=== PATIENT | female | born 1960 | race Caucasian/White ===

== ENCOUNTER 2016-07-20 19:17 | Emergency (ER) | payer OTHER ==
[~2016-07-20] VITALS: Ht 162.6 cm; Wt 79.5 kg
[2016-07-20 19:18] VITALS: BP 119/81; PULSE 129; RESP 25; O2SAT 88
[2016-07-20 19:32] VITALS: BP 76/55; PULSE 122
--- NOTE | 2016-07-20 19:42 | ED.REPORT ---
HPI-Abd Pain F 40 and Over Date of Service Jul 20, 2016 ED Provider: Dr. Artemio Browne The patient is a 56 year old female w/ a hx of DM II and bariatric sleeve who presents to the ED via EMS due to sudden onset, severe SOB while hiking at [facility]. She c/o of a slight cough and denies chest pain. EMS reported that the pt was purple. She was given 2 mg morphine, 324 ASA, and 1 nitro en route. The pt recently had a URI and was on antibiotics. She had skin reduction surgery 6 weeks ago. Nursing Notes Stated Complaint: SHORTNESS OF BREATH Chief Complaint: Chest Pain Nursing Notes Reviewed: Yes Allergies: Coded Allergies: shellfish derived (Verified Allergy, Unknown, Rash,Itching,, 07/20/16) General Time Seen by MD: 19:42 Chief Complaint Other (shortness of breath ) Hx Obtained From: Patient Arrived By: Ambulance Sudden in Onset?: Yes Onset Occurred: Just prior to arrival Symptom Duration: Since onset Severity: Current: No pain currently Recent Healthcare: No recent doctor visit, No recent hospitalization Similar Sx Previous: No Past Medical History Past Medical History Reports: Diabetes mellitus Past Surgical History skin reduction bariatric sleeve Reports: Smoking History Unknown if Ever Smoker Social History Alcohol Use: 1-3 per day Other Social History: Good social support, Local resident Ambulatory Status Independent Review of Systems Respiratory: Reports: Non-productive cough, Shortness of breath Cardiovascular: Denies: Chest pain Complete sys rev & neg: except as marked. Physical Exam Vital Signs Vital Signs (First) Date Time Temp Pulse Resp B/P Pulse Ox O2 Delivery O2 Flow Rate FiO2 07/20/16 19:18 129 25 119/81 88 Room Air 07/20/16 20:00 4 Initial VS: Reviewed Head / Eyes: Atraumatic, Normocephalic, PERRL ENT: Mucous membranes moist, Conjunctiva normal Extremities: Vascular intact, Neuro intact, No swelling Skin: Warm, Dry General/Constitutional: Awake, Alert, Cooperative Resp Distress / Stridor: Positive: Resp distress mild tachypneic hypoxic Heart Rate / Rhythm: Positive: Tachycardia Abdomen: Atraumatic, Soft, Non-tender Back: Atraumatic, Inspection NL, Full range of motion Interpretation & Diagnostics Interpretation & Diagnostics: ANGIOGRAPHY CT IMPRESSION: 1. Multiple segmental and subsegmental pulmonary emboli as described above. The bilateral lower lobe emboli are occlusive. 2. Findings consistent with right cardiac strain. These findings were discussed with Dr. Browne at 9:33 PM on 07/20/16. Dictated by: Evangelina Francis M.D. on 07/20/2016 at 21:29 Approved by: Evangelina Francis M.D. on 07/20/2016 at 21:37 Lab Results Interpretation Result Diagram: 07/20/16 1937 07/20/16 193 Test 07/20/16 19:37 07/20/16 22:55 White Blood Count 17.6th/mm3 (3.8-10.1) Red Blood Count 5.00mil/mm3 (3.90-5.20) Hemoglobin 13.4g/dL (12.0-15.6) Hematocrit 41.4% (35.0-46.0) Mean Corpuscular Volume 82.8fL (81-100) Mean Corpuscular Hemoglobin 26.8pg (27.0-35.0) Mean Corpuscular Hemoglobin Concent 32.4% (32.0-37.0) Red Cell Distribution Width 13.2% (12.3-15.4) Platelet Count 268bil/L (150-400) Neutrophils (%) (Auto) 83.7% (40-74) Lymphocytes (%) (Auto) 11.3% (14-46) Monocytes (%) (Auto) 4.3% (4-12) Eosinophils (%) (Auto) 0.1% (0-5) Basophils (%) (Auto) 0.2% (0-3) D-Dimer 3.67mg/L FEU (<0.50) Sodium Level 137mEq/L (134-144) Potassium Level 4.8mEq/L (3.5-5.2) Chloride Level 98mEq/L (97-108) Carbon Dioxide Level 19mmol/L (18-29) Blood Urea Nitrogen 16mg/dL (6-24) Creatinine 0.71mg/dL (0.57-1.00) Estimat Glomerular Filtration Rate 122mL/min (>59) Glucose Level 452mg/dL (60-99) Calcium Level 9.5mg/dL (8.5-10.1) Magnesium Level 1.9mg/dL (1.6-2.6) Total Bilirubin 0.5mg/dL (0.0-1.2) Aspartate Amino Transf (AST/SGOT) 31U/L (0-50) Alanine Aminotransferase (ALT/SGPT) 30U/L (0-32) Alkaline Phosphatase 99U/L (25-150) Troponin T 0.088ug/L (0.0-0.011) Total Protein 7.1g/dL (6.4-8.4) Albumin 4.0g/dL (3.4-5.0) Hold Kang Top Tube Received (Received) Urine Color Yellow (YELLOW) Urine Appearance Hazy (CLEAR,HAZY) Urine pH 5.5 (5.0-8.0) Urine Specific [place] 1.015 (1.003-1.035) Urine Protein Negativemg/dL (NEG,TRACE) Urine Glucose (UA) >1000mg/dL (NEGATIVE) Urine Ketones 15mg/dL (NEGATIVE) Urine Occult Blood Trace (NEGATIVE) Urine Nitrite Negative (NEGATIVE) Urine Bilirubin Negative (NEGATIVE) Urine Urobilinogen Normalmg/dL (NORMAL) Urine Leukocyte Esterase Trace (NEGATIVE) Urine RBC 0-2/hpf (0-2) Urine WBC 11-50/hpf (0-5) Urine Epithelial Cells Moderate/hpf (NONE-MOD) Urine Crystals None seen (NONE SEEN) Urine Bacteria Moderate/hpf (NONE-FEW) Urine Hyaline Casts None/lpf (NONE) Urine Granular Casts None seen (NONE SEEN) Urine Waxy Casts None seen (NONE SEEN) Urine Red Blood Cell Casts None seen (NONE SEEN) Urine White Blood Cell Casts None seen (NONE SEEN) Urine Mucus Present (None Seen) Urine Trichomonas None seen (NONE SEEN) Urine Yeast None (NONE SEEN) Urinalysis Comment None Urine Culture Reflexed Indicated ECG Interpretation ECG Interpretation: ST elevation in lead V2 no voltage criteria for [place] Time: 19:36 Interpreted by: ED physician Rhythm / Conduction: Tachycardia (rate 116) X-Ray Chest Interpretation Chest Xray Interpretation: IMPRESSION: No acute cardiopulmonary findings. Dictated by: Evangelina Francis M.D. on 07/20/2016 at 19:53 Approved by: Evangelina Francis M.D. on 07/20/2016 at 19:53 View: Portable Interpretation / Wet Read by: Interpret - Radiologist Re-Eval/Medical Decision Med Decision/Clinical Course Healthy 56-year-old female presents tachycardic, tachypneic, hypoxic and short of breath. Symptoms were abrupt in nature. She is found to have a massive pulmonary emboli with evidence of right heart strain on CT scan. EKG has evidence of ischemia/strain. Her troponin is elevated. She is a candidate for interventional/intra-arterial thrombolytics. Our teletypewriter installer does not perform this procedure. Our interventional radiologist will not be available after 6 AM in the event of complications or if she needs to have this repeated. It was recommended for transfer. I consulted with the pulmonary/ critical care doctor at [facility]. Dr. Marylin Harris. She has graciously accepted Ms. Bates for transfer. In the meantime we will treat with fluids, oxygen and IV heparin. At 2320 Ms. Bates is resting comfortably. Her sat is 100% on 4 L nasal cannula. Her respiratory rate is 22. Her blood pressure is 127/66. Her heart rate is 105. She does not have JVD. Her lungs are clear. Transfer is eminent. Re-Evaluation/Progress : Time of Eval: 20:37 Patient Status: Condition unchanged Re-Evaluation/Progress Note: Pt rechecked. She is still short of breath. Waiting on laboratorty results. Consultation #1: Referral / Consult Name: Donny Reid MD Consulted With: Hospitalist Call Returned at: 21:29 Manager Regional Sales: Accepts admit Note: Case discussed. Dr. Reid accepts admit. Consultation #2: Referral / Consult Name: Abdi Henderson MD Consulted With: Cardiology Call Returned at: 21:41 Note: Case discussed. Pt may need thrombolytics. Consultation #3: Referral / Consult Name: Evangelina Francis MD Call Returned at: 21:45 Note: Case discussed radiologist. This is a potentially massive or submassive PE w/ right ventricular strain. Will potentially ship pt to [facility] for further care. Consultation #4: Call Returned at: 21:52 Note: Case discussed w/ nursing land management supervisor at [facility] in [place]. They do not have any ICU beds available. Consultation #5: Call Returned at: 21:55 Note: Case discussed w/ Dr. Parish Morris, bariatric surgeon, at [facility]. Consultation #6: Call Returned at: 22:20 Note: Case discussed. Consultation #7: Call Returned at: 22:23 Note: Case discussed with Arcelia Ramos, Commercial Mortgage Broker Dr. Marylin Harris, pulmonary expert. She recommends catheter directed therapy. Consultation #8: Referral / Consult Name: Donny Reid MD Call Returned at: 11:10 Note: Informed Dr. Reid of plan to transfer pt to [place]. He understands and agrees with plan. Counseled Regarding: Diagnosis, Lab results, Need for transfer Discharge & Departure Primary Impression: Pulmonary embolism Pulmonary embolism type: saddle Chronicity: acute Acute cor pulmonale presence: with acute cor pulmonale Qualified Code: I26.02 - Saddle embolus of pulmonary artery with acute cor pulmonale Disposition: Transfer, Acute Care Facility Transfer Requested at: 22:23 Call returned time Receiving Hospital: Arcelia Ramos, Commercial Mortgage Broker Dr. Marylin Harris. Transfer Accepted: Yes Transfer Accepted at: 22:23 Transfer Reason: Higher level of care Spoke with: Specialty physician Patient Status: Stable for transfer Patient Informed: Yes Discharge Condition All VS Reviewed: Yes Condition: Critical Referrals: [facility] Crit Care Except Billable Proc Time Spent: 195-224 minutes Services Performed: Patient management by me, Time spent at bedside, Reviewing test results, Reviewing imaging, Discussing patient care, Documentation in record, Time with fam/surrogate Scribe Attestation Portion of this note were transcribed by Sunita Chaney. I, Dr. Browne, personally performed the history, physical exam, and medical decision-making: I reviewed and confirmed the accuracy for the information in the transcribed note. Signed by: mera Mccain, 07/20/16 [id number] copies to: [facility] Artemio Browne DO Jul 20, 2016 19:42 Sunita Chaney Jul 20, 2016 19:51
--- NOTE | 2016-07-20 19:55 | DRSVH ---
PROCEDURE: X-RAY CHEST ONE VIEW, PORTABLE ([id number]) INDICATIONS: cp, sob, tachypneia while hiking TECHNIQUE: One view of the chest was acquired. COMPARISON: None. FINDINGS: Surgical changes and devices: None. Lungs and pleura: No pleural effusions or pneumothorax. Lungs are clear. Mediastinum: Mediastinal contours appear normal. Heart size is normal. Bones and chest wall: No suspicious bony lesions. Overlying soft tissues appear unremarkable. IMPRESSION: No acute cardiopulmonary findings. Dictated by: Evangelina Francis M.D. on 07/20/2016 at 19:53 Approved by: Evangelina Francis M.D. on 07/20/2016 at 19:53
[2016-07-20 20:00] VITALS: BP 118/71; PULSE 118; RESP 21; O2SAT 98
[2016-07-20 20:00] LABS: BASOPHILS % (AUTO) 0.2 % (0-3); EOSINOPHILS % (AUTO) 0.1 % (0-5); MONOCYTES % (AUTO) 4.3 % (4-12); Mean Corpuscular Hemoglobin 26.8 pg (27.0-35.0); Mean Corpuscular Volume 82.8 fL (81-100); NEUTROPHILS % (AUTO) 83.7 % (40-74); Platelet Count 268 bil/L (150-400)
[2016-07-20 20:36] LABS: Magnesium 1.9 mg/dL (1.6-2.6)
[2016-07-20 20:40] LABS: TROPONIN T 0.088 ug/L (0.0-0.011)
[2016-07-20] MEDS ORDERED: Heparin 5,000 Unit/mL Inj IVPUSH ONE (20:40)
[2016-07-20] MEDS ORDERED: Heparin 25K Unit/500mL 0.45 NS 25,000 UNIT in IV Premix 1 EACH IV SCH (20:40)
[2016-07-20] MEDS ORDERED: Heparin 5,000 Unit/mL Inj IVPUSH PRN (20:40)
[2016-07-20] MEDS ORDERED: Heparin 25,000 Unit/500 mL 0.45% NS Premix IV ONE (20:41)
[2016-07-20] MEDS ORDERED: Heparin 5,000 Unit/mL Inj ONE (20:41)
[2016-07-20 20:45] VITALS: BP 120/73; PULSE 118; RESP 22; O2SAT 98
--- NOTE | 2016-07-20 21:39 | DRSVH ---
PROCEDURE: CT ANGIO CHEST PULMONARY EMBOLISM ([id number]) INDICATIONS: dyspnea, hypoxia, tachycardia, recent surgery TECHNIQUE: After the administration of intravenous contrast, 2 mm thick sections acquired from the pulmonary api danyelle to the posterior costophrenic angles. 3-dimensional maximum intensity projection (MIP) coronal a nd sagittal reformats were then acquired through the thorax. For radiation dose reduction, the follo wing was used: automated exposure control, adjustment of mA and/or kV according to patient size. COMPARISON: None. FINDINGS: Image quality: Excellent. Pulmonary arteries: Filling defects are present within the segmental and subsegmental pulmonary arter ies bilaterally. And there is occlusive thrombus within the majority of the subsegmental branches of the bilateral lower lobes. There is partial occlusion of the subsegmental branches of the upper lobes and the lingula. Lungs and pleura: Lungs are clear. No pleural effusions or pneumothorax. Central and peripheral ai rways are patent. Mediastinum: The heart is normal size. The right ventricle is enlarged and there is leftward septal b owing consistent with right cardiac strain. No mediastinal or hilar adenopathy. There is a moderate h iatal hernia. Bones and chest wall: No suspicious bony lesions. Ribs and thoracic spine appear intact throughout. Thyroid gland is unremarkable. No axillary or supraclavicular adenopathy. Abdomen: Visualized upper abdominal solid organs appear normal in the early arterial phase of enhanc ement. IMPRESSION: 1. Multiple segmental and subsegmental pulmonary emboli as described above. The bilateral lower lobe emboli are occlusive. 2. Findings consistent with right cardiac strain. These findings were discussed with Dr. Browne at 9:33 PM on 07/20/16. Dictated by: Evangelina Francis M.D. on 07/20/2016 at 21:29 Approved by: Evangelina Francis M.D. on 07/20/2016 at 21:37
[2016-07-20] MEDS ORDERED: Alum-Mag Hydrox-Simeth 30 mL Suspension PO PRN (21:40)
[2016-07-20] MEDS ORDERED: Ondansetron 2 mg/mL 2 mL Inj IVPUSH PRN (21:40)
[2016-07-20] MEDS ORDERED: Polyethylene Glycol (PEG) 17 Gm Powder PO PRN (21:40)
[2016-07-20] MEDS ORDERED: 0.9% Sodium Chloride 1,000 ML IV ONE (21:45)
[2016-07-20 22:03] VITALS: BP 124/82; PULSE 117; RESP 21; O2SAT 99
[2016-07-20 23:01] LABS: APPEARANCE,URINE HAZY (CLEAR,HAZY); COLOR,URINE YELLOW (YELLOW); OCCULT BLOOD,URINE TRACE (NEGATIVE); PH,URINE 5.5 (5.0-8.0); UROBILINOGEN,URINE NORMAL (NORMAL)
[2016-07-20 23:49] VITALS: BP 116/72; PULSE 110; RESP 17; O2SAT 99
== END 2016-07-20 23:45 | disposition short-term general hospital (02) ==
LOC: EDBD 19:17 → SED 19:17
DX: I26.02 Saddle embolus of pulmonary artery with acute cor pulmonale (principal); E11.9 Type 2 diabetes mellitus without complications; Z98.84 Bariatric surgery status; Z91.013 Allergy to seafood
CPT/HCPCS: 36415; 71010; 71275; 80053; 81000; 82948; 83735; 84484; 85025; 85378; 87086; 87088; 93005; 96361; 96374; 99291; 99292; J1644; J7030; Q9967